=== PATIENT | female | born 1965 | race Caucasian/White ===

== ENCOUNTER 2019-10-26 14:41 | Inpatient (IN) | payer BC ==
[~2019-10-26] VITALS: Ht 160 cm; Wt 45.5 kg
[2019-10-26] MEDS ORDERED: DEPAKENE250 MG PO (16:34)
[2019-10-26] MEDS ORDERED: DESYREL 100MG100 MG PO (16:35)
[2019-10-26] MEDS ORDERED: ATIVAN 1MG T1 MG/TAB PO (16:36)
[2019-10-26 17:42] LABS: BASO # 0.1 (0.0-0.2); BASO % 1.1 % (0.0-2.0); EOS # 0.1 (0.0-0.7); EOS % 1.1 % (0-4.0); GRAN # 1.8 (1.4-6.5); GRAN % 38.8 % (42.2-75.2); HEMATOCRIT 42.1 % (37.0-47.0); HEMOGLOBIN 13.3 g/dl (12.5-16.0); LYMPH # 2.3 (1.2-3.4); LYMPH % 48.9 % (20.0-51.0); MEAN CELL VOLUME 97 fl (80.0-100.0); MEAN CORPUSCULAR HEMOGLOBIN 31 pg (27.0-31.0); MEAN CORPUSCULAR HGB CONC 32 g/dl (33.0-37.0); MEAN PLATELET VOLUME 11.7 fl (7.4-10.4); MONO # 0.5 (0.1-0.6); MONO % 9.9 % (1.7-9.3); PLATELET COUNT 173 K/mm3 (130-400); RED BLOOD COUNT 4.35 M/mm3 (4.10-5.30); REDCELL DISTRIBUTION WIDTH-CV 11.9 % (11.5-14.5)
[2019-10-26 17:56] LABS: ALBUMIN 4.4 gm/dL (3.5-5.0); BILIRUBIN,TOTAL 0.5 mg/dL (0.0-1.0); CALCIUM 9.8 mg/dL (8.4-10.2); CREATININE, serum 0.47 (0.52-1.25); POTASSIUM 4.6 mmol/L (3.4-5.0); TOTAL PROTEIN 7.7 gm/dL (6.4-8.2)
--- NOTE | 2019-10-26 18:25 | NUR ---
Patient up from ER. Spouse at bedside. Patient and spouse oriented to room. Call light in reach.
[2019-10-26 19:43] VITALS: BP 155/96; PULSE 78; TEMP 97.9
[2019-10-26 19:51] LABS: PROTHROMBIN TIME 11.3 SECONDS (9.7-12.8)
[2019-10-26 20:00] VITALS: BP 155/96; PULSE 78; TEMP 97.9
--- NOTE | 2019-10-26 20:00 | NUR ---
PATIENT RESTING IN BED, SPOUSE AT BEDSIDE, DURING SHIFT CHANGE REPORT FROM DAY SHIFT NURSE.
[2019-10-26 21:38] LABS: COLLECTION METHOD CLEAN CATCH
[2019-10-26 22:19] LABS: AMORPHOUS CRYSTAL Present /uL; MUCOUS Present /lpf; PH 8 (5-8); SQUAMOUS EPITHELIAL 0-2 /hpf; URINE APPEARANCE Cloudy; URINE BACTERIA None Seen /hpf; URINE BILIRUBIN Negative (NEGATIVE); URINE BLOOD Negative (NEGATIVE); URINE COLOR Yellow; URINE GLUCOSE Negative (NEGATIVE); URINE KETONE Trace (NEGATIVE); URINE LEUKOCYTE ESTERASE Negative (NEGATIVE); URINE NITRATE Negative (NEGATIVE); URINE PROTEIN(semi-quant) Negative (NEGATIVE); URINE UROBILINOGEN Negative (NEGATIVE)
[2019-10-26 23:46] VITALS: BP 92/65; PULSE 84; TEMP 97.9
[2019-10-27] VITALS (13 sets, daily range): BP systolic 90–136; BP diastolic 36–83; PULSE 66–103; TEMP 97.6–99.3
--- NOTE | 2019-10-27 03:43 | NUR ---
RESTS WITH EYES CLOSED, DOES NOT AWAKEN WHEN ROOM ENTERED. SPOUSE SLEEPING IN CHAIR AT BEDSIDE.
--- NOTE | 2019-10-27 05:34 | NUR ---
NO CHANGE IN ASSESSMENT FROM EARLIER ASSESSMENT. SPOUSE CONTINUES BEDSIDE. PATIENT WITH NO COMPLAINTS CURRENTLY. BED ALARM ENGAGED.
--- NOTE | 2019-10-27 07:30 | NUR ---
PATIENT RESTING IN BED DURING SHIFT CHANGE REPORT GIVEN TO DAY SHIFT NURSE. SPOUSE AT BEDSIDE.
[2019-10-27 07:51] LABS: BASO # 0.1 (0.0-0.2); BASO % 1.3 % (0.0-2.0); EOS # 0.1 (0.0-0.7); EOS % 1.6 % (0-4.0); GRAN # 1.7 (1.4-6.5); GRAN % 44.6 % (42.2-75.2); HEMATOCRIT 38.7 % (37.0-47.0); HEMOGLOBIN 12.3 g/dl (12.5-16.0); LYMPH # 1.6 (1.2-3.4); LYMPH % 40.9 % (20.0-51.0); MEAN CELL VOLUME 97 fl (80.0-100.0); MEAN CORPUSCULAR HEMOGLOBIN 31 pg (27.0-31.0); MEAN CORPUSCULAR HGB CONC 32 g/dl (33.0-37.0); MONO # 0.4 (0.1-0.6); MONO % 11.1 % (1.7-9.3); PLATELET COUNT 158 K/mm3 (130-400); RED BLOOD COUNT 3.98 M/mm3 (4.10-5.30); REDCELL DISTRIBUTION WIDTH-CV 11.9 % (11.5-14.5)
[2019-10-27 08:05] LABS: CALCIUM 9.1 mg/dL (8.4-10.2); CREATININE, serum 0.58 (0.52-1.25); MAGNESIUM 1.9 mg/dL (1.6-2.3); POTASSIUM 4.1 mmol/L (3.4-5.0)
--- NOTE | 2019-10-27 09:17 | NUR ---
PT RESTING IN BED AFTER USING BSC WITH TRANSFERING. AM MEDS GIVEN. PLAN ON SURGERY LATER TODAY FOR HIP FX WITH DR. NELSON OR DR. VERAS. CONSENT SIGNED ON CHART.
--- NOTE | 2019-10-27 09:52 | NUR ---
SW met with the patient and her (Prasanth, ph#[phone]), two daughters (Flor & Merna), and son (Roe) to discuss discharge plan. The patient lives in [place] with her . Flor and Roe report that they also live in [place] and that Merna lives in [place]. The patient and her report that the patient is independent with ADLs and has a walker and mobility chair. Prasanth states that if the patient does need any assistance with ADLs, then he is able to help. The patient's PCP is Dr. David Jackson in [place] and she receives her medications at [facility]. Her reports no difficulties obtaining her meds. The patient does not have advanced directives in EMR, but the states that she does have them completed and that they are somewhere at home. They state that the patient's DPOA-HC is either the or there daughter, Flor. The patient had a left hip fracture. SW discussed post-acute rehab. The patient's states that due to the patient's cognitive impairments, that the patient does not do well with strangers and freezes up. The patient's family would like to see how the patient does with therapy. The patient is to tentatively have surgery today. SW to continue to follow to ensure a safe discharge.
--- NOTE | 2019-10-27 10:56 | NUR ---
CONSENT OBTAINED FROM PATIENT AND DPOA. BABAK AT BEDSIDE AND QUESTIONS SOLICITED AND ANSWERED.
--- NOTE | 2019-10-27 12:21 | NUR ---
First visit from the senior electrical design engineer. No needs right now.
--- NOTE | 2019-10-27 16:37 | NUR ---
PT TO SURGERY PER BED PRE OP MEDS GIVEN. PT FAMILY TO WAITING ROOM. @1600.
--- NOTE | 2019-10-27 19:14 | NUR ---
REPORT TO JUAN CANDELARIA.
--- NOTE | 2019-10-27 19:30 | NUR ---
PATIENT TO ROOM, SPOUSE WAITING IN PATIENT'S ROOM. NEEDING REPEATED INSTRUCTIONS TO HAVE PATIENT TO FOLLOW COMMANDS. PATIENT UNABLE TO DETERMINE LEVEL OF SPINAL RESOLVING, REACTED TO PINCHING SENSATION TO LOWER EDGE OF RIB CAGE VARINDER TORSO, NO SPONTANEOUS MOVEMENT TO BOTH FEET TO TACTILE TOUCH. INSTRUCTED SPOUSE PATIENT TO REMAIN FLAT IN BED UNTIL SPINAL LEVEL INPROVES.
--- NOTE | 2019-10-27 19:57 | NUR ---
STILL UNABLE TO HAVE PATIENT VERBALLY RESPOND WHERE LEVEL OF SPINAL IS AT, OBSERVED PATIENT RESPOND TO "SHARP PINCH" TO VARINDER TORSO ABOVE BELLY BUTTON LEVEL WITH NO VARINDER TOE/LEG MOVEMENT OBSERVED.
--- NOTE | 2019-10-27 19:59 | NUR ---
SPINAL LEVEL ASSESSMENT, NO VARINDER TOE/LEG MOVEMENT OBSERVED, PATIENT REACTING TO SHARP PINCH TO VARINDER TORSO ABOVE BELLY BUTTON LEVEL. SPOUSE REMAINS AT BEDSIDE.
--- NOTE | 2019-10-27 21:00 | NUR ---
PATIENT REACTING TO PINCHING TO LEFT MID THIGH WITH NO LLE/TOE MOVEMENT, RIGHT UPPER CALF WITH NO RLE/TOE MOVEMENT.
--- NOTE | 2019-10-27 21:00 | NUR ---
NO BLE MOVEMENT TO LEGS OR FEET. PATIENT UNABLE TO GIVE APPROPRIATE RESPONSE TO TACTILE SENSATION.
--- NOTE | 2019-10-27 22:14 | NUR ---
APPLIED FEMALE EXTERNAL CATHETER AFTER PATIENT INCONTINENT OF MEDIUM AMOUNT OF URINE. YELLOW IN COLOR. SPINAL LEVEL AT LOWER LEFT THIGH AND MID RIGHT CALF WITH NO MOVEMENT TO VARINDER FEET AND VARINDER LEGS.
--- NOTE | 2019-10-27 23:00 | NUR ---
DIFFICULT TO DETERMINE SPINAL LEVEL, PATIENT REACTING TO PINCHING STIMULI TO LEFT GROIN WITH NO LLE/FOOT MOVEMENT, TO RIGHT UPPER THIGH WITH NO RLE/TOE MOVEMENT OBSERVED.
--- NOTE | 2019-10-27 23:47 | NUR ---
NO BLE MOVEMENT TO TACTILE TOUCH OBSERVED, PATIENT STILL UNABLE TO APPROPRIATELY RESPONSE TO TOUCH SENSATION TO DETERMINE SPINAL LEVEL. PATIENT KEPT FLAT.
--- NOTE | 2019-10-27 23:49 | NUR ---
NO BLE MOVEMENT OBSERVE, DOES NOT REACT TO TOUCH SENSATION TO BLE FEET AT THIS TIME. FEMALE EXTERNAL CATHETER IN PLACE, NO OUTPUT OBSERVED.
[2019-10-28] VITALS (7 sets, daily range): BP systolic 92–149; BP diastolic 38–89; PULSE 79–111; TEMP 97.2–98.7
--- NOTE | 2019-10-28 01:02 | NUR ---
CHANGED FEMALE EXTERNAL CATHETER DEVICE TO PERIAREA, OBSERVED URINE IN COLLECTION WALL SUCTION CANISTER OF CLEAR DARK YELLOW. PATIENT WITH SMALL MOVEMENT TO LEFT FOOT ON COMMAND AND MOVEMENT OBSERVED TO RIGHT FOOT ON COMMAND. STILL DOES NOT VERBALLY RESPOND APPROPRIATELY TO TACTILE TOUCH.
[2019-10-28 06:52] LABS: BASO % 0.1 % (0.0-2.0); GRAN # 7.3 (1.4-6.5); GRAN % 82.9 % (42.2-75.2); HEMOGLOBIN 11.8 g/dl (12.5-16.0); LYMPH # 0.7 (1.2-3.4); LYMPH % 7.8 % (20.0-51.0); MEAN CELL VOLUME 94 fl (80.0-100.0); MEAN CORPUSCULAR HEMOGLOBIN 32 pg (27.0-31.0); MEAN CORPUSCULAR HGB CONC 33 g/dl (33.0-37.0); MEAN PLATELET VOLUME 12.2 fl (7.4-10.4); MONO # 0.8 (0.1-0.6); MONO % 8.7 % (1.7-9.3); PLATELET COUNT 175 K/mm3 (130-400); RED BLOOD COUNT 3.75 M/mm3 (4.10-5.30); REDCELL DISTRIBUTION WIDTH-CV 11.6 % (11.5-14.5)
[2019-10-28 07:00] LABS: HEMATOCRIT 35.4 % (37.0-47.0)
[2019-10-28 07:05] LABS: CALCIUM 9.1 mg/dL (8.4-10.2); CREATININE, serum 0.48 (0.52-1.25); POTASSIUM 4.2 mmol/L (3.4-5.0)
--- NOTE | 2019-10-28 07:55 | NUR ---
PATIENT IN BED, EATING BREAKFAST DURING SHIFT CHANGE REPORT GIVEN TO DAY SHIFT NURSE. IVF INFUSING WITH NO PROBLEMS. PATIENT DENIES ANY NEEDS. EXTERNAL FEMALE CATHETER IN PLACE, OBSERVED CLEAR YELLOW URINE IN COLLECTION CONTAINER. SPOUSE ENTERED ROOM AT END OF REPORT.
--- NOTE | 2019-10-28 10:46 | NUR ---
Initial visit; Patient and family thanked Oil Seal Assembler for offering spiritual care.
--- NOTE | 2019-10-28 15:25 | NUR ---
Pt had external catheter, discontinued since therapy visited pt this morning, changed suction tubing and cannister.
--- NOTE | 2019-10-28 16:52 | NUR ---
TIA met with the patient and her , Prasanth, to review discharge plan and to discuss PT's recommendation of home with family assist and home health if able. The patient and her report that they still plan to return home. They state that they are not interested in home health at this time, but might decide to get it at a later time, depending on how she does after she gets home. TIA provided the patient's with Medicare.[employer]'s list of home health agencies that serve [place]. The patient's states that they have every covered and do not have any concerns about returning home. TIA to update the clinical team and will continue to follow.
--- NOTE | 2019-10-28 19:30 | NUR ---
Bedside report to TEAGAN Almendarez. Pt on BSC with LIFE SCIENCES INSTRUCTOR assisting, Olamide feldman.
--- NOTE | 2019-10-28 20:00 | NUR ---
PATIENT UP ON BEDSIDE COMMODE DURING SHIFT CHANGE REPORT FROM DAY SHIFT NURSE. SPOUSE IN ROOM, PATIENT DENIES ANY DISCOMFORT DURING REPORT.
[2019-10-29 03:47] VITALS: BP 116/48; PULSE 96; TEMP 97.7
[2019-10-29 07:09] LABS: HEMATOCRIT 33.5 % (37.0-47.0)
--- NOTE | 2019-10-29 07:30 | NUR ---
PATIENT RESTING IN BED DURING SHIFT CHANGE REPORT GIVEN TO DAY SHIFT NURSE. SPOUSE AT BEDSIDE.
[2019-10-29] MEDS ORDERED: ASPI325T6 PO (07:33)
[2019-10-29] MEDS ORDERED: SENNA-S 50 MG-81 TAB PO (07:36)
[2019-10-29] MEDS ORDERED: VITAMIN C500 MG PO (07:36)
[2019-10-29] MEDS ORDERED: NORCO 325 MG-51 TAB PO (07:36)
[2019-10-29] MEDS ORDERED: MULTI VITAMINS1 TAB PO (07:36)
[2019-10-29] MEDS ORDERED: OSCAL 500 TAB500 MG PO (07:36)
[2019-10-29 08:07] VITALS: BP 115/55; PULSE 86; TEMP 98.4
--- NOTE | 2019-10-29 09:00 | NUR ---
Patient resting in bed at this time, at bedside. Patient is alert and oriented x3, but repeats herself and requires some additional direction, reports that this is her baseline. Patient requests PRN pain medication, administered per order. Patient denies further needs at this time, call light within reach.
--- NOTE | 2019-10-29 09:56 | NUR ---
SW attended clinical rounds. The patient's at bedside. The patient is to discharge today, 10/29. The hospitalist reviewed post-acute rehab and home health again. The patient and her report that they are still not interested in those services at this time. TIA then followed up with the patient and her . SW discussed outpatient PT/OT. The patient and her were agreeable to this. The patient's reports that he would prefer to make the appointment and that they would plan to go [facility] the [facility] for the outpatient PT/OT. TIA informed nurse practitionerSofia. The patient and her had no other questions or concerns for SW. No additional needs at this time.
[2019-10-29 12:50] VITALS: BP 115/51; PULSE 105; TEMP 97.6
--- NOTE | 2019-10-29 13:00 | NUR ---
Discharge teaching completed with patient and . Instructions given for dressing and making follow up appointments. Importance of making and keeping follow up appointments and referrals as ordered stressed, patient and verbalized understanding. Administered PRN pain medication per order for extended ride home. Patient and confirm that all personal belongings have been gathered. Patient escorted to ED entrance, where she entered a private vehicle.
== END 2019-10-29 13:00 | disposition home or self-care (01) | DRG 470 ==
LOC: COL.ER 14:41 → SURG 16:32
PROVIDERS: Family Medicine; Nurse Practitioner Family; Orthopaedic Surgery; Physician Assistant; ADMIT Student in an Organized Health Care Education/Training Program
PROC: 0SRS01A Replacement of Left Hip Joint, Femoral Surface with Metal Synthetic Substitute, Uncemented, Open Approach (ICD-10-PCS; principal; 2019-10-27 17:30)
DX: S72.002A Fracture of unspecified part of neck of left femur, initial encounter for closed fracture (principal); G40.909 Epilepsy, unspecified, not intractable, without status epilepticus; F41.9 Anxiety disorder, unspecified; G47.00 Insomnia, unspecified; R35.0 Frequency of micturition; W18.30XA Fall on same level, unspecified, initial encounter; Y93.89 Activity, other specified; Y92.009 Unspecified place in unspecified non-institutional (private) residence as the place of occurrence of the external cause; Y99.8 Other external cause status
CPT/HCPCS: 99222-AI; 99231-AI; 99239; A9284; C1776; J0690; J2250; J2704; J2795; J7120; J7121

== ENCOUNTER 2023-09-30 11:50 | Day surgery (SDC) | payer BC ==
[~2023-09-30] VITALS: Ht 154.9 cm; Wt 45.0 kg
[~2023-09-30 11:50] MED LIST: ASPI325T6 PO; ATIVAN 1MG T1 MG/TAB PO; DEPAKENE250 MG PO; DESYREL 100MG100 MG PO; LR 1,000 ML IV SCH; MULTI VITAMINS1 TAB PO; NORCO 325 MG-51 TAB PO; OSCAL 500 TAB500 MG PO; SENNA-S 50 MG-81 TAB PO; VITAMIN C500 MG PO
[2023-09-30 14:05] VITALS: BP 100/51; PULSE 68; TEMP 97.2
[2023-09-30] MEDS ORDERED: Midazolam 2 MG/2 ML VIAL ONE ×2 (16:55→19:22)
--- NOTE | 2023-09-30 17:01 | NUR ---
PATIENT TO PACU HOLDING AREA AT THIS TIME. REPORT GIVEN TO TEAGAN BUNCH. FAMILY AT BEDSIDE.
[2023-09-30] MEDS ORDERED: LR 1,000 ML IV ONE (18:00)
[2023-09-30] MEDS ORDERED: Tranexamic Acid 1,000 MG/10 ML VIAL ONE (19:22)
[2023-09-30] MEDS ORDERED: fentaNYL 50 MCG/ML 2 ML VIAL ONE (20:21)
[2023-09-30] MEDS ORDERED: Ondansetron 4 MG/2 ML VIAL IV PRN (20:30)
[2023-09-30] MEDS ORDERED: HYDROmorphone 2 MG/1 ML VIAL IV PRN (20:30)
[2023-09-30] MEDS ORDERED: fentaNYL 50 MCG/ML 2 ML VIAL IV PRN (20:30)
[2023-09-30] MEDS ORDERED: hydrALAZINE 20 MG/ML 1 ML VIAL IV PRN (20:30)
[2023-09-30] MEDS ORDERED: Morphine 4 MG/ML VIAL IV PRN (21:30)
[2023-09-30] MEDS ORDERED: Mag/Al Hydrox/Simeth Susp 30 ML CUP PO PRN (21:30)
[2023-09-30] MEDS ORDERED: Magnes Hydrox (MOM) 80 MG/ML 30 ML CUP PO PRN (21:30)
[2023-09-30] MEDS ORDERED: NS 1,000 ML IV SCH (21:30)
[2023-09-30] MEDS ORDERED: Bisacodyl 5 MG TAB PO PRN (21:30)
[2023-09-30] MEDS ORDERED: Naloxone 0.4 MG/ML VIAL IV PRN (21:30)
[2023-09-30] MEDS ORDERED: Acetaminophen 500 MG TAB PO PRN (21:30)
[2023-09-30] MEDS ORDERED: oxyCODONE 5 MG TAB PO PRN ×2 (21:30)
[2023-09-30] MEDS ORDERED: Acetaminophen 500 MG TAB PO SCH (22:19)
[2023-09-30 22:45] VITALS: BP 103/54; PULSE 66; TEMP 97.1
[2023-09-30 23:00] VITALS: BP 114/52; PULSE 61; TEMP 97.2
[2023-09-30 23:15] VITALS: BP 99/59; PULSE 60; TEMP 97.1
[2023-09-30 23:30] VITALS: BP 105/59; PULSE 58; TEMP 97.2
[2023-10-01] VITALS (7 sets, daily range): BP systolic 91–110; BP diastolic 42–69; PULSE 64–89; TEMP 97.1–98.1
[2023-10-01] MEDS ORDERED: ceFAZolin 1 G in Water For Injection,Sterile 10 ML IV SCH (01:19)
[2023-10-01] MEDS ORDERED: Naproxen 250 MG TAB PO SCH (01:19)
--- NOTE | 2023-10-01 05:05 | NUR ---
PT ARRIVED TO UNIT FROM PACU AROUND 2245HRS TO ROOM 345. PT ALERT, BUT NOT ORIENTED. VSS WITH SOFT B/P. O2 RA. PT'S AT BEDSIDE AND HELPS TO CALM PT. PT SHOWED NO SIGNS OF PAIN OR DISCOMFORT. PT ALSO STATES NO TO QUESTIONS OF PAIN. PT WON'T LAY STILL OR ALLOW ME TO PUT ANYTHING IN HER MOUTH. PT'S REQUESTED ALL THE RAILS OF PT'S BED TO BE PLACE IN THE UP POSITION. PT'S DRESSING REINFORCED. IT'S VERY HARD TO GET PT TO STAY OFF HER RIGHT HIP. WILL CONTINUE TO MONITOR OFTEN. FALL PRECAUTIONS IN PLACE. BED ALARM ON. CALL LIGHT WITHIN REACH.
[2023-10-01 07:33] LABS: HEMOGLOBIN 9.6 g/dl (12.5-16.0)
[2023-10-01 07:34] LABS: HEMATOCRIT 30.3 % (37.0-47.0)
[2023-10-01 07:50] LABS: CALCIUM 8.5 mg/dL (8.4-10.2); CREATININE, serum 0.62 mg/dL (0.57-1.11); POTASSIUM 4.3 mmol/L (3.5-4.5)
[2023-10-01] MEDS ORDERED: Sennosides/Docusate 8.6-50 MG TAB PO SCH (09:00)
[2023-10-01] MEDS ORDERED: Ascorbic Acid 500 MG TAB PO SCH (09:00)
[2023-10-01] MEDS ORDERED: Magnes Hydrox (MOM) 80 MG/ML 30 ML CUP PO SCH (09:00)
[2023-10-01] MEDS ORDERED: Valproate Oral Soln 250 MG/5 ML UD PO SCH ×2 (10:00)
--- NOTE | 2023-10-01 10:35 | NUR ---
Pt doing okay this morning. Pt spouse at bedside most of the morning. He did assist with feeding her and helped with giving her medications. I did crush her morning medications as spouse stated that she does not take pills well. Pt did hold the applesauce/pills in her mouth for quite a while and kept having to be prompted to swallow. Spouse stated that she can be stubborn about things and taking pills is one of them. Spouse not in room at this time, pt is sitting up in the chair at this time.
--- NOTE | 2023-10-01 12:00 | NUR ---
Pt continues to sit up in the chair, spouse has returned to bedside. Simms catheter recently removed. Spouse planning/hoping to take pt home today. Discussed voiding with him. He stated sometimes she is able to tell when she has to go, other times she is incontinent. Lunch ordered, will continue to monitor
--- NOTE | 2023-10-01 13:32 | NUR ---
D: Initial visit: Template Fitter stopped by room on rounds. Pt was resting and content sitting in her chair. A: Pt has no needs but is looking forward to being dismissed today. P: Template Fitter informed pt that if she needed anything to let her nurse know. Template Fitter will follow up as needed.
--- NOTE | 2023-10-01 13:39 | NUR ---
Spouse wanting to take pt home. He is also wanting to do her therapy himself. He stated when she goes other places it is difficult and she does not cooperate. He stated if she is not progressing, then he would reach out for other options. Poly FU aware and is okay with this. Will follow up in [place] at the office next week. Will review discharge when finalized
--- NOTE | 2023-10-01 14:29 | NUR ---
Pt has voided. Spouse is getting her ready to go home. Stated I just need to get orders from ortho and then I would bring paperwork in
--- NOTE | 2023-10-01 14:58 | NUR ---
Dressing change done to right hip. Incision well approximated with cornelius intact. New dressing applied
--- NOTE | 2023-10-01 15:12 | NUR ---
Receptionist Airline Lounge met with patient and her , Prasanth (ph#[phone]) to discuss discharge planning. Prasanth answered intake questions for patient appeared to be confused and answered all questions by stating her own name. Patient lives in [place], [place] with her and sees Dr. Diane in [place] for primary care. [facility] uses [facility] in [place] for medications. Patient has three children that lives nearby (within 15 miles) and her youngest daughter, Medina is DPOA-HC. Prasanth advised they may consider changing this to add the other children as well. Prasanth stated patient depends on family for assistance with ADLS and that she is not left home alone for long periods of time. Prasanth is semi retired and available most of the time. Patient has a walker available but Prasanth stated she lacks the focus to safely use it. TIA discussed outpatient PT or even Home Health services. Prasanth declined both stating he will work with patient at home. Prasanth advised if patient does not progress he will get outpatient PT set up for her. Patient has a shower bench and grab bars in her bathroom. TIA updated RN on discharge plan. Discharge Plan: Home with family
[2023-10-01] MEDS ORDERED: ASPI325T6 PO (16:06)
[2023-10-01] MEDS ORDERED: NAPROSYN500 MG PO (16:06)
[2023-10-01] MEDS ORDERED: CEPHALEXIN500 M1 PO (16:07)
[2023-10-01] MEDS ORDERED: ROXICODONE 55 MG/TAB PO (16:07)
--- NOTE | 2023-10-01 16:40 | NUR ---
Reviewed discharge instructions with pt/spouse. Reviewed follow up appointment with spouse as well as medications and incision care. Spouse verbalized understanding all instructions. INT removed from right wrist.
== END 2023-10-01 17:07 | disposition home or self-care (01) ==
LOC: SDCO 11:50 → SURG 22:53 → SDCO 10-01 17:07
PROVIDERS: Physician Assistant
DX: S72.001A Fracture of unspecified part of neck of right femur, initial encounter for closed fracture (principal); G40.909 Epilepsy, unspecified, not intractable, without status epilepticus; R53.81 Other malaise; Z79.899 Other long term (current) drug therapy
CPT/HCPCS: OP; A4314; A9284; C1776; J0690; J2250; J2704; J3010; J7030; J7120